=== PATIENT | female | born 1980 | race Caucasian/White ===

== ENCOUNTER 2017-10-11 06:44 | Emergency (ER) | payer BC ==
[2017-10-11 06:56] LABS: URINE APPEARANCE CLEAR; URINE BILIRUBIN NEGATIVE (NEGATIVE); URINE BLOOD LARGE (NEGATIVE); URINE COLOR YELLOW; URINE GLUCOSE (UA) NEGATIVE (NEGATIVE); URINE KETONE NEGATIVE (NEGATIVE); URINE LEUKOCYTE ESTERASE NEGATIVE (NEGATIVE); URINE NITRITE NEGATIVE (NEGATIVE); URINE PROTEIN TRACE (NEGATIVE); URINE UROBILINOGEN 0.2 E.U./dL (0.20 - 1.00)
[2017-10-11 06:59] LABS: HCG,QUALITATIVE URINE NEGATIVE (NEGATIVE)
[2017-10-11] MEDS: 0.9 % SODIUM CHLORIDE 1000ML 1,000 ML IV ONE (07:00)
[2017-10-11 07:05] LABS: URINE BACTERIA NONE SEEN; URINE EPITHELIAL CELLS 0 - 2 (FEW); URINE RBC 21 - 35 (NONE SEEN); URINE WBC 0 - 2 (0-2/hpf)
[2017-10-11] MEDS: KETOROLAC 30 MG/ML VIAL IVP ONE (07:05)
[2017-10-11] MEDS: ONDANSETRON HCL IV 4 MG/2 ML VIAL IVP ONE ×2 (07:05→07:41)
[2017-10-11 07:23] LABS: BASO % 0.4 % (0-6); EOS % 2.1 % (0-6); GRAN % 70.2 % (47-80); HEMOGLOBIN 12.4 gm/dl (11.6-16.0); LYMPH % 19.6 % (16-45); MEAN CELL VOLUME 85.4 fl (81-97); MEAN CORPUSCULAR HEMOGLOBIN 27.9 pg (27-33); MEAN CORPUSCULAR HGB CONC 32.6 g/dl (32-36); MEAN PLATELET VOLUME 10.3 fl (7.4-10.4); MONO % 7.7 % (0-9); PLATELET COUNT 311 K/uL (130-400); RED BLOOD COUNT 4.45 M/uL (3.80-5.40); RED CELL DISTRIBUTION WIDTH 13.9 % (11.5-14.5)
[2017-10-11] MEDS: HYDROMORPHONE HCL 2 MG/ML VIAL IVP ONE ×2 (07:23→09:17)
[2017-10-11 07:34] LABS: BLOOD UREA NITROGEN 12 mg/dL (6-20); CREATININE 0.7 mg/dL (0.5-0.9); EST GLOMERULAR FILTRATION RATE > 60 mL/min
--- NOTE | 2017-10-11 07:34 | Emergency Department Record ---
History of Present Illness - General Chief complaint: Flank Pain Stated complaint: FLANK PAIN Time Seen by Provider: 10/11/17 07:06 Source: Patient Mode of Arrival: Ambulatory Limitations: No limitations - History of Present Illness Initial comments: The patient is here due to the acute onset of L flank pain about 2 hours prior to presenting in the ER. She states the pain is fairly severe and radiates around to the L groin. She has had some nausea but no vomiting. The patient does have a hx of kidney stones similar to this and has needed a ureter stent in the past. MD Complaint: Other Onset/Timin -: Hour(s) Severity scale (1-10): 7 Consistency: Constant Improves with: None Worsens with: Urination Patient : No Associated Symptoms: Nausea/vomiting - Related Data Previous Rx's Medication Instructions Recorded Oxycodone HCl/Acetaminophen 1 - 2 tab PO Q6H PRN #12 tab 10/11/17 [Percocet 5mg/325mg] Tamsulosin HCl [Flomax] 0.4 mg PO DAILY #7 cap.er.24h 10/11/17 Allergies Allergy/AdvReac Type Severity Reaction Status Date / Time acetaminophen [From Vicodin] AdvReac VOMITING Verified 10/11/17 06:53 hydrocodone [From Vicodin] AdvReac VOMITING Verified 10/11/17 06:53 Travel Screening - Travel/Exposure Within Last 30 Days Have you traveled within the last 30 days?: No - Travel Symptoms Symptom Screening: None Review of Systems Constitutional: Denies: Chills, Fever Eyes: Denies: Eye discharge ENT: Denies: Congestion Respiratory: Denies: Cough, Dyspnea Past Medical History - SOCIAL HISTORY Smoking Status: Current some day smoker - RESPIRATORY Hx Respiratory Disorders: No - CARDIOVASCULAR Hx Cardio Disorders: No - NEURO Hx Neuro Disorders: No - GI Hx GI Disorders: No - Hx Genitourinary Disorders: Yes Hx Kidney Stones: Yes - ENDOCRINE Hx Endocrine Disorders: No - MUSCULOSKELETAL Hx Musculoskeletal Disorders: No - PSYCH Hx Psych Problems: No - HEMATOLOGY/ONCOLOGY Hx Hematology/Oncology Disorders: No Family Medical History Any Significant Family History?: Yes Hx Cancer: Grandparents Hx Heart Disease: Father Hx Kidney Disease: Mother *Kidney Comment: stones. UTI's Physical Exam - General General Appearance: Alert, Oriented x3, Cooperative, Mild distress - Head Head exam: Atraumatic, Normocephalic, Normal inspection - Eye Eye exam: Normal appearance, PERRL - Neck Neck exam: Normal inspection, Full ROM. negative: Tenderness - Respiratory Respiratory exam: Normal lung sounds bilaterally. negative: Respiratory distress - Cardiovascular Cardiovascular Exam: Regular rate, Normal rhythm, Normal heart sounds - GI/Abdominal GI/Abdominal exam: Soft, Normal bowel sounds. negative: Guarding, Rebound, Rigid, Tenderness - Extremities Extremities exam: Normal inspection, Full ROM, Normal capillary refill. negative: Tenderness - Neurological Neurological exam: Alert. negative: Motor sensory deficit Course Vital Signs 10/11/17 06:49 Temperature 97.7 F Pulse Rate [ 75 Pulse Ox Probe] Respiratory 20 Rate Blood Pressure 131/93 [Left Arm] Pulse Ox 100 - Reevaluation(s) Reevaluation #1: The patient is doing a lot better at this time. Her pain is much improved and she is resting comfortably. 10/11/17 08:39 Reevaluation #2: The patient is doing very well at this time. I did discuss the case with Dr. Valerio and he will see the patient tomorrow [facility]. She does understand the need to return for any worsening pain, fever, or vomiting. 10/11/17 09:54 Medical Decision Making - Data Complexity MDM Data: Labs Ordered and/or Reviewed, X-Ray Ordered and/or Reviewed - Lab Data Result diagrams: 10/11/17 06:57 10/11/17 06:57 Lab Results 10/11/17 10/11/17 Range/Units 06:56 06:57 WBC 9.0 (4.2-12.2) K/uL RBC 4.45 (3.80-5.40) M/uL Hgb 12.4 (11.6-16.0) gm/dl Hct 38.0 (35.0-47.0) % MCV 85.4 (81-97) fl MCH 27.9 (27-33) pg MCHC 32.6 (32-36) g/dl RDW 13.9 (11.5-14.5) % Plt Count 311 (130-400) K/uL MPV 10.3 (7.4-10.4) fl Gran % 70.2 (47-80) % Lymphocytes % 19.6 (16-45) % Monocytes % 7.7 (0-9) % Eosinophils % 2.1 (0-6) % Basophils % 0.4 (0-6) % Urine Color Yellow Urine Appearance Clear Urine pH 6.0 (5.0-8.0) Ur Specific [place] >= 1.030 (1.002-1.030) Urine Protein Trace H (NEGATIVE) Urine Glucose (UA) Negative (NEGATIVE) Urine Ketones Negative (NEGATIVE) Urine Blood Large H (NEGATIVE) Urine Nitrite Negative (NEGATIVE) Urine Bilirubin Negative (NEGATIVE) Urine Urobilinogen 0.2 (0.20 - 1.00) E.U./dL Ur Leukocyte Esterase Negative (NEGATIVE) Urine RBC 21 - 35 (NONE SEEN) Urine WBC 0 - 2 (0-2/hpf) Ur Epithelial Cells 0 - 2 (FEW) Urine Bacteria None seen Urine HCG, Qual Negative (NEGATIVE) - Radiology Data Radiology results: Report reviewed (CT: 2-3 mm distal L ureter stone with [place]. ) Disposition Disposition: Discharge Clinical Impression: Ureteral stone with hydronephrosis Disposition: Home, Self-Care Condition: (2) Stable Instructions: Renal Colic (ED) Additional Instructions: Please drink plenty of fluids and take Motrin or Advil for pain along with the Percocet if needed. Please strain your urine and take the Flomax. Please see Dr. Valerio tomorrow in the [facility] as directed. Return to the ER for any increased pain, fever, or vomiting. Prescriptions: Oxycodone HCl/Acetaminophen [Percocet 5mg/325mg] 1 - 2 tab PO Q6H PRN #12 tab PRN Reason: Abdominal Pain Tamsulosin HCl [Flomax] 0.4 mg PO DAILY #7 cap.er.24h Referrals: [facility] [Provider Group] Forms: Patient Portal Access Time of Disposition: 09:50 Quality - Quality Measures Quality Measures: N/A - Blood Pressure Screening View Details: Yes Does Patient Have Any of the Following: No Blood Pressure Classification: Normal BP Reading Systolic Measurement: 103 Diastolic Measurement: 67 Screening for High Blood Pressure: < Normal BP, F/U Not Required > [G8783]
[2017-10-11 07:37] LABS: GLUCOSE,RANDOM 108 mg/dL (74-109)
--- NOTE | 2017-10-12 08:23 | CT SCAN REPORT ---
EXAM: CT OF THE ABDOMEN AND PELVIS HISTORY: LEFT FLANK PAIN. TECHNIQUE: CT of the abdomen and pelvis without IV contrast was obtained. Lack of IV contrast limits evaluation of the solid visceral organs. Lack of oral contrast limits evaluation of bowel. Comparison: None. FINDINGS: Limited evaluation of the lung bases is unremarkable. The osseous structures are grossly intact. Limited evaluation of the liver, spleen, adrenal glands, and pancreas is unremarkable. The gallbladder is present. There are multiple nonobstructing renal calculi bilaterally. In addition there is mild to moderate left sided hydronephrosis and hydroureter, likely secondary to an approximately 2-3 mm distal left ureteral calculus with suggestion of a second distal left ureteral calculus measuring 3-4 mm near the left UVJ. The urinary bladder is not distended, limiting its evaluation. No gross evidence for bowel obstruction. Trace of free fluid may be physiologic. No free air. Normal appendix. IMPRESSION: 1. MULTIPLE NONOBSTRUCTING RENAL CALCULI BILATERALLY. 2. IN ADDITION THERE IS MILD TO MODERATE LEFT SIDED HYDRONEPHROSIS AND HYDROURETER LIKELY SECONDARY TO A 2 MM DISTAL LEFT URETERAL CALCULUS. QUESTIONABLE SECOND CALCULUS NEAR THE LEFT UVJ MEASURING 3-4 MM. 3. TRACE OF FREE FLUID IN THE PELVIS WHICH MAY BE PHYSIOLOGIC. JOB NUMBER: [id number] MTDD
== END 2017-10-11 10:06 | disposition home or self-care (01) ==
LOC: ER 06:44
DX: N13.2 Hydronephrosis with renal and ureteral calculous obstruction (principal); R11.2 Nausea with vomiting, unspecified; Z72.0 Tobacco use
CPT/HCPCS: 74176; 80048; 81001; 81025; 85025; 96361; 96374; 96375; 96376; 99284; J1885; J2405; J7030